=== PATIENT | female | born 1955 | race Caucasian/White ===

== ENCOUNTER 2024-05-10 06:01 | Emergency (ER) | payer MEDICARE ==
[~2024-05-10] VITALS: Ht 167.6 cm; Wt 63.0 kg
[2024-05-10] MEDS ORDERED: JANTOVEN1 M2 PO (07:13)
[2024-05-10] MEDS ORDERED: BUSPIRONE HCL10 M6 PO (07:13)
[2024-05-10] MEDS ORDERED: ATORVASTATIN CA20 MG PO (07:13)
[2024-05-10] MEDS ORDERED: LISI20 PO (07:13)
[2024-05-10] MEDS ORDERED: Methocarbamol 500 MG Tab PO ONE (07:55)
[2024-05-10] MEDS ORDERED: Ketorolac Tromethamine 30mg Vial IV ONE (07:55)
[2024-05-10] MEDS ORDERED: Dexamethasone Sod Phos 10 MG/ML 1ML VIAL IV ONE (08:00)
[2024-05-10] MEDS ORDERED: EPIPEN0.3 MG/0.3 IM (08:01)
[2024-05-10 08:48] LABS: International Normalized Ratio 2.3; Prothrombin Time Results 23.1 Sec (9.7-11.5)
== END 2024-05-10 09:57 | disposition home or self-care (01) ==
LOC: ER 06:01
PROVIDERS: Student in an Organized Health Care Education/Training Program
DX: M76.31 Iliotibial band syndrome, right leg (principal); T78.3XXA Angioneurotic edema, initial encounter; R06.2 Wheezing; Z88.2 Allergy status to sulfonamides; Z88.8 Allergy status to other drugs, medicaments and biological substances; Z88.1 Allergy status to other antibiotic agents; Z88.0 Allergy status to penicillin; Z91.041 Radiographic dye allergy status; Z79.899 Other long term (current) drug therapy; Z79.01 Long term (current) use of anticoagulants; I10 Essential (primary) hypertension; E78.5 Hyperlipidemia, unspecified
CPT/HCPCS: 85610; 93971; 96374; 99283-25; A9270; J1100; J1885

== ENCOUNTER 2024-06-20 09:50 | Day surgery (SDC) | payer MEDICARE ==
[~2024-06-20] VITALS: Ht 167.6 cm; Wt 61.2 kg
[2024-06-20] VITALS (18 sets, daily range): BP systolic 109–144; BP diastolic 56–80
[~2024-06-20 09:50] MED LIST: ATORVASTATIN CA20 MG PO; Acetaminophen 500 MG Tab PO SCH; BUSPIRONE HCL10 M6 PO; CeFAZolin Sodium 2,000 MG in NS 100 ML IV SCH; Chlorhexidine Mouth Care 15 ML UDC MT SCH; EPIPEN0.3 MG/0.3 IM; JANTOVEN1 M2 PO; LEFL20 PO; LISI20 PO; Lactated Ringer's 1,000 ML IV SCH; OxyCODONE HCL 10 MG TABCR PO SCH; Ropivacaine 0.5% HCl/Pf 123.125 MG,EPINEPHrine HCL 0.25 MG,Ketorolac Tromethamine 15 MG... INFIL SCH; Tranexamic Acid 1,000 MG in NS 100 ML IV SCH; WARF5 PO
[2024-06-20] MEDS ORDERED: CeFAZolin Sodium 2,000 MG VIAL ONE (10:24)
[2024-06-20] MEDS ORDERED: BUPR150ER PO (10:41)
--- NOTE | 2024-06-20 11:08 | NUR ---
Ambulatory in Day Surgery History, Chart, Medications and Allergies reviewed before start of procedure. Pre-Op teaching done. Pt verbalizes understanding.
[2024-06-20] MEDS ORDERED: OxyCODONE HCL 5 MG TAB PO PRN ×2 (12:40)
[2024-06-20] MEDS ORDERED: Promethazine HCl 25 MG Tab PO PRN (12:40)
[2024-06-20] MEDS ORDERED: Ondansetron HCl 2 MG / ML 2ML Vial IV PRN (12:40)
[2024-06-20] MEDS ORDERED: Bisacodyl 10 MG Supp PR PRN (12:40)
[2024-06-20] MEDS ORDERED: Magnesium Hydroxide Conc 10 ML UDC PO PRN (12:45)
[2024-06-20] MEDS ORDERED: HYDROmorphone HCl/Pf 1MG SYR IV PRN ×2 (12:45→13:25)
[2024-06-20] MEDS ORDERED: Metoclopramide HCl 5MG / ML 2ML Vial IV PRN (12:45)
[2024-06-20] MEDS ORDERED: Lactated Ringer's 1,000 ML IV SCH (12:45)
[2024-06-20] MEDS ORDERED: FLU VACC TS2024-25(6MOS UP)/PF 45 MCG/0.5 ML SYRINGE IM SCH (12:45)
[2024-06-20] MEDS ORDERED: FentaNYL Citrate 50 MCG/ML 2 ML Injection ONE ×2 (12:55→15:31)
[2024-06-20] MEDS ORDERED: propofoL 20 ML IV ONE (12:55)
[2024-06-20] MEDS ORDERED: Rocuronium Bromide 10 MG/ML 5ML Injection IV ONE (12:56)
[2024-06-20] MEDS ORDERED: DiphenhydrAMINE HCL 25 MG Cap PO PRN (13:15)
[2024-06-20] MEDS ORDERED: FentaNYL Citrate 50 MCG/ML 2 ML Injection IV PRN (13:25)
[2024-06-20] MEDS ORDERED: Albuterol 2.5 MG/3 ML VIAL INH PRN (13:25)
[2024-06-20] MEDS ORDERED: Ketorolac Tromethamine 30mg Vial ONE (13:25)
[2024-06-20] MEDS ORDERED: Droperidol 5 mg/2 ml Vial IV PRN (13:25)
[2024-06-20] MEDS ORDERED: Ondansetron HCl 2 MG / ML 2ML Vial ONE (13:25)
[2024-06-20] MEDS ORDERED: Phenylephrine HCl 100 MCG/ML-NS 10MLSYR (1MG/10ML) ONE (13:25)
[2024-06-20] MEDS ORDERED: Dexamethasone Sod Phos 10 MG/ML 1ML VIAL ONE (13:25)
[2024-06-20] MEDS ORDERED: Labetalol HCL 5 MG/ML 4ML Injection (Single Dose) ONE (13:56)
[2024-06-20] MEDS ORDERED: HYDROmorphone HCl/Pf 1MG SYR ONE ×2 (14:38→15:45)
[2024-06-20] MEDS ORDERED: Sugammadex Sodium 200 MG/2ML SDV (100 MG/ML) ONE (14:43)
[2024-06-20] MEDS ORDERED: Acetaminophen 500 MG Tab PO SCH (16:00)
--- NOTE | 2024-06-20 16:50 | NUR ---
PT ARRIVED FROM PACU AT APPROXIMATELY 1625. PT DROWSY BUT WAKES WHEN SPOKEN TO. SHE IS ALERT/ORIENTED. PT REPORTS PAIN IS 4/10 SHE IS ABLE TO REST WITH HER EYES CLOSED. PT SNORES QUIETLY WHEN LEFT ALONE. CONTINUOUS PULSE OX IN PLACE. TWO RN SKIN CHECK COMPLETED WITH CHRISS RN, CIARRA REDNESS PRESENT AREA BLANCHES, PROTECTIVE DRESSING PLACED. R KNEE SHIVAM DRESSING AND FROY WRAP IN PLACE, DRESSING C/D/I.
[2024-06-20] MEDS ORDERED: Ketorolac Tromethamine 15mg Vial IV SCH (18:00)
--- NOTE | 2024-06-20 18:20 | NUR ---
SHIFT SUMMARY PT IS POD#0 FROM R TKA WITH DR. LASSITER. PAIN MANAGED WITH TYLENOL AND TORADOL. PT HAS BEEN DROWSY SINCE COMING ARRIVAL TO THE ROOM BUT IS NOW AWAKE AND TOLERATING PO. PT ORIENTED TO CALL LIGHT. FAMILY AT THE BEDSIDE.
[2024-06-20] MEDS ORDERED: Docusate Sodium 100 MG Cap PO SCH (21:00)
[2024-06-20] MEDS ORDERED: CeFAZolin Sodium 2,000 MG in NS 100 ML IV SCH (21:00)
[2024-06-21 05:21] LABS: BASOPHILS ABSOLUTE AUTO 0.01 K/mm3 (0.00-0.23); BASOPHILS PERCENT AUTO 0 % (0-2); EOSINOPHILS PERCENT AUTO 0 % (0-6); Hematocrit 29.5 % (33.0-51.0); Hemoglobin 9.6 g/dL (11.5-16.0); IMMATURE GRAN ABSOLUTE AUTO 0.01 K/mm3 (0.00-0.10); IMMATURE GRAN PERCENT AUTO 0 % (0-1); LYMPHOCYTES ABSOLUTE AUTO 0.73 K/mm3 (0.84-5.20); LYMPHOCYTES PERCENT AUTO 21 % (21-46); MONOCYTES ABSOLUTE AUTO 0.22 K/mm3 (0.16-1.47); MONOCYTES PERCENT AUTO 6 % (4-13); Mean Corpuscular HGB 31.5 pg (26.0-34.0); Mean Corpuscular HGB Conc 32.5 g/dL (31.5-36.5); Mean Corpuscular Volume 97 fL (80-100); Mean Platelet Volume 10.4 fL (9.1-12.4); NEUTROPHILS ABSOLUTE AUTO 2.49 K/mm3 (1.96-9.15); NEUTROPHILS PERCENT AUTO 72 % (41-73); Platelet Count 187 K/mm3 (150-400); RDW Coefficient Variation 13.2 % (11.7-14.2); RDW Standard Deviation 47.2 fL (35.1-46.3); Red Blood Cell Count 3.05 M/mm3 (3.80-5.20); White Blood Cell Count 3.46 K/mm3 (4.00-11.30)
[2024-06-21 05:42] LABS: Bun/Creatinine Ratio 32.7 (12.0-20.0); Calcium, Blood 8.8 mg/dL (8.5-10.1); Creatinine, Blood 1.01 mg/dL (0.40-1.00); Potassium, Blood 4.9 mmol/L (3.5-5.5)
[2024-06-21 05:57] VITALS: BP 120/76
--- NOTE | 2024-06-21 06:06 | NUR ---
SHIFT SUMMARY POD 1 R TKA. NO ACUTE CHANGES OVERNIGHT. VSS. TOLERATING ORALS. AMBULATES USING FWW c GB & SBA. VOIDING. PT REPORTS PAIN TOLERABLE, POLAR PACK IN USE, MEDICATED PER EMAR. SHIVAM DRESSING & FROY WRAP C/D/I. ANTICIPATED TO WORK c PHYSCIAL THERAPY THEN DISCHARGE HOME LATER TODAY. PT DRESSED & RESTING IN CHAIR. CALL LIGHT IN REACH, WILL REPORT TO DAY RN.
[2024-06-21 07:18] VITALS: BP 115/63
[2024-06-21] MEDS ORDERED: Leflunomide 10 MG TABLET PO SCH (09:00)
[2024-06-21] MEDS ORDERED: Atorvastatin 10 MG Tab PO SCH (09:00)
[2024-06-21] MEDS ORDERED: buPROPion HCL 150 MG TAB.SR.12H PO SCH (09:00)
[2024-06-21] MEDS ORDERED: BusPIRone HCl 10 MG Tab PO SCH (09:00)
[2024-06-21] MEDS ORDERED: Enoxaparin 40 MG/0.4 ML SYR SC SCH (09:00)
[2024-06-21] MEDS ORDERED: Lisinopril 20 MG Tab PO SCH (09:00)
[2024-06-21 10:11] VITALS: BP 113/54
--- NOTE | 2024-06-21 10:25 | NUR ---
DISCHARGE NOTE POD1 R TKA, PT AMBULATING SBA W// FWW AND GB. PAIN CONTROLLED W/ PAIN MEDS PER EMAR. SALINE LOCKED, PT TOLERATING PO REG DIET. ANGELITO HOSE ON, DRESSING C/D/I, SHIVAM DRAIN IN PLACE. PT SENT HOME W/ AQUACEL TO CHANGE DRESSING IN ONE WEEK. DISCHARGE INSTRUCTIONS REVIEWED W/ PT, COPY GIVEN. PT SENT HOME VIA W/C TO [facility]IVATE [facility] IN STABLE CONDITION W/ ALL BELONGINGS INCLUDING PERSONAL WALKER.
== END 2024-06-21 10:26 | disposition home or self-care (01) ==
LOC: ORSCMMR 09:50 → ORD 11:00 → SURS 15:54 → ORSCMMR 06-21 10:26
PROVIDERS: Orthopaedic Surgery
PROC: 0SRC0JA Replacement of Right Knee Joint with Synthetic Substitute, Uncemented, Open Approach (ICD-10-PCS; principal; 2024-06-20 11:00)
PROC: 8E0Y0CZ Robotic Assisted Procedure of Lower Extremity, Open Approach (ICD-10-PCS; principal; 2024-06-20 11:00)
DX: M17.11 Unilateral primary osteoarthritis, right knee (principal); I10 Essential (primary) hypertension; E78.00 Pure hypercholesterolemia, unspecified; F32.A Depression, unspecified; F41.9 Anxiety disorder, unspecified; Z86.711 Personal history of pulmonary embolism; Z86.718 Personal history of other venous thrombosis and embolism; Z79.01 Long term (current) use of anticoagulants; Z79.899 Other long term (current) drug therapy; Z87.891 Personal history of nicotine dependence
CPT/HCPCS: 36415; 73560-RT; 80048; 85025; 97110; 97116; 97162; A9270; C1713; C1776; J0171; J0690; J0735; J1100; J1171; J1650; J1885; J2371; J2405; J2704; J2795; J3010; J7120

== ENCOUNTER → 2024-07-17 | Outpatient (CLI) | payer MEDICARE ==
[~2024-07-17] MED LIST changes: -Acetaminophen 500 MG Tab PO SCH; +BUPR150ER PO; -CeFAZolin Sodium 2,000 MG in NS 100 ML IV SCH; -Chlorhexidine Mouth Care 15 ML UDC MT SCH; -Lactated Ringer's 1,000 ML IV SCH; -OxyCODONE HCL 10 MG TABCR PO SCH; -Ropivacaine 0.5% HCl/Pf 123.125 MG,EPINEPHrine HCL 0.25 MG,Ketorolac Tromethamine 15 MG... INFIL SCH; -Tranexamic Acid 1,000 MG in NS 100 ML IV SCH
[2024-07-17 16:56] LABS: BODY FLUID RBC 0.596 M/mm3 (0-0)
[2024-07-17 17:00] LABS: Appearance, Synovial Fluid Bloody (Clear); Color, Synovial Fluid Red (None-P Yel); RBC Count, Synovial Fluid 596000 /mm3 (0-0); WBC Count, Synovial Fluid 577 /mm3 (0-180)
[2024-07-17 17:45] LABS: Eos, Synovial Fluid 1 % (0-2); Lymphs, Synovial Fluid 55 % (0-15); Monocytes/Macrophages, Synovia 3 % (0-65); Neutrophils, Synovial Fluid 41 % (0-24)
== END | disposition home or self-care (01) ==
LOC: LAB 16:30 → LAB SHORT 16:30
PROVIDERS: Physician Assistant Surgical
DX: M25.561 Pain in right knee (principal)
CPT/HCPCS: 87070; 87075; 87205; 89051

== ENCOUNTER 2024-08-03 12:11 | Inpatient (IN) | payer MEDICARE ==
[~2024-08-03] VITALS: Ht 167.6 cm; Wt 59.6 kg
[~2024-08-03 12:11] MED LIST changes: -ASCO500 PO; -Acetaminophen650 M1 PO; -BUPROPION XL150 M1 PO; -FERSU300 PO; -LEFLUNOMIDE10 M2 PO; -VISBIOME 112.51 EACH PO
[2024-08-03] MEDS ORDERED: Piperacillin/Tazobactam Sod 3.375 GM in NS 100 ML IV ONE (14:40)
[2024-08-03 14:41] LABS: BASOPHILS ABSOLUTE AUTO 0.03 K/mm3 (0.00-0.23); BASOPHILS PERCENT AUTO 1 % (0-2); EOSINOPHILS PERCENT AUTO 0 % (0-6); Hematocrit 35.1 % (33.0-51.0); Hemoglobin 11.4 g/dL (11.5-16.0); IMMATURE GRAN ABSOLUTE AUTO 0.03 K/mm3 (0.00-0.10); IMMATURE GRAN PERCENT AUTO 1 % (0-1); LYMPHOCYTES ABSOLUTE AUTO 0.95 K/mm3 (0.84-5.20); LYMPHOCYTES PERCENT AUTO 16 % (21-46); MONOCYTES ABSOLUTE AUTO 0.37 K/mm3 (0.16-1.47); MONOCYTES PERCENT AUTO 6 % (4-13); Mean Corpuscular HGB 31.9 pg (26.0-34.0); Mean Corpuscular HGB Conc 32.5 g/dL (31.5-36.5); Mean Corpuscular Volume 98 fL (80-100); Mean Platelet Volume 10.5 fL (9.1-12.4); NEUTROPHILS PERCENT AUTO 77 % (41-73); Platelet Count 206 K/mm3 (150-400); RDW Coefficient Variation 13.8 % (11.7-14.2); RDW Standard Deviation 50.3 fL (35.1-46.3); Red Blood Cell Count 3.57 M/mm3 (3.80-5.20); White Blood Cell Count 6.08 K/mm3 (4.00-11.30)
[2024-08-03] MEDS ORDERED: Vancomycin HCL 1,250 MG in NS 250 ML IV ONE (15:10)
[2024-08-03 15:19] LABS: Albumin, Blood 3.4 g/dL (3.4-5.0); Albumin/Globulin Ratio 0.8 (0.8-1.8); Bilirubin, Total 1.4 mg/dL (0.1-1.0); Bun/Creatinine Ratio 25.2 (12.0-20.0); Calcium, Blood 9.5 mg/dL (8.5-10.1); Creatinine, Blood 1.07 mg/dL (0.40-1.00); Globulin, Blood 4.1 g/dL (2.2-4.0); Potassium, Blood 3.9 mmol/L (3.5-5.5); Total Protein, Blood 7.5 g/dL (6.4-8.2)
[2024-08-03] MEDS ORDERED: Ondansetron HCl 2 MG / ML 2ML Vial IV PRN (16:45)
[2024-08-03] MEDS ORDERED: NS 1,000 ML IV SCH (16:45)
[2024-08-03] MEDS ORDERED: FLU VACC TS2024-25(6MOS UP)/PF 45 MCG/0.5 ML SYRINGE IM SCH (16:50)
[2024-08-03 18:51] VITALS: BP 142/73
--- NOTE | 2024-08-03 18:57 | NUR ---
ADMIT NEW ER ADMIT WITH RIGHT KNEE SEPTIC ARTHRITIS. DR. GOMEZ CONSULTED FOR ORTHO. PT AMBULATORY WITH FWW. R KNEE IS SWOLLEN, INCISION IS SLIGHTLY RED, AND IS WRAPPED IN FROY WRAP. PT REPORTS R KNEE IS TENDER BUT TOLERABLE. VSS. ORIENTED TO ROOM AND CALL LIGHT. GIVEN WATER AND JELLO. PLAN TO REPORT TO ONCOMING NOC KATHRYN.
[2024-08-03 19:32] LABS: International Normalized Ratio 2.02; Prothrombin Time Results 20.5 Sec (9.7-11.5)
[2024-08-03] MEDS ORDERED: Piperacillin/Tazobactam Sod 3.375 GM in NS 100 ML IV SCH (20:08)
[2024-08-03] MEDS ORDERED: OxyCODONE 5 mg/Acetamin 325 mg TABLET PO PRN (22:40)
[2024-08-04] VITALS (16 sets, daily range): BP systolic 95–135; BP diastolic 54–67
--- NOTE | 2024-08-04 04:21 | NUR ---
SHIFT SUMMARY YANNA WAS ALERT AND FULLY ORIENTED ON ASSESMENT. PT HAD JUST ARRIVED TO UNIT AT START OF SHIFT. ADMIT COMPLETE. PT HERE FOR INFECTION TO RECENT R TKR. PT ABLE TO AMBULATE PAINFULLY WITH 1P ASSIST. PT KEPT NPO FROM MIDNIGHT FOR POSSIBLE SURGERY ON DAY SHIFT. PT OTHERWISE WELL SEEMING. PAIN WELL CONTROLLED AT THIS TIME. NO ACUTE EVENTS NO NOTED CHANGES TO PT CONDITION.
[2024-08-04 05:00] LABS: BASOPHILS ABSOLUTE AUTO 0.02 K/mm3 (0.00-0.23); BASOPHILS PERCENT AUTO 0 % (0-2); EOSINOPHILS ABSOLUTE AUTO 0.03 K/mm3 (0.00-0.68); EOSINOPHILS PERCENT AUTO 1 % (0-6); Hematocrit 30.9 % (33.0-51.0); Hemoglobin 9.9 g/dL (11.5-16.0); IMMATURE GRAN ABSOLUTE AUTO 0.03 K/mm3 (0.00-0.10); IMMATURE GRAN PERCENT AUTO 1 % (0-1); LYMPHOCYTES ABSOLUTE AUTO 0.84 K/mm3 (0.84-5.20); LYMPHOCYTES PERCENT AUTO 15 % (21-46); MONOCYTES ABSOLUTE AUTO 0.32 K/mm3 (0.16-1.47); MONOCYTES PERCENT AUTO 6 % (4-13); Mean Corpuscular HGB 31.5 pg (26.0-34.0); Mean Corpuscular Volume 98 fL (80-100); Mean Platelet Volume 10.1 fL (9.1-12.4); NEUTROPHILS ABSOLUTE AUTO 4.32 K/mm3 (1.96-9.15); NEUTROPHILS PERCENT AUTO 78 % (41-73); Platelet Count 167 K/mm3 (150-400); RDW Standard Deviation 50.5 fL (35.1-46.3); Red Blood Cell Count 3.14 M/mm3 (3.80-5.20); White Blood Cell Count 5.56 K/mm3 (4.00-11.30)
[2024-08-04 05:19] LABS: International Normalized Ratio 1.71; Prothrombin Time Results 17.6 Sec (9.7-11.5)
[2024-08-04 05:25] LABS: Bun/Creatinine Ratio 24.5 (12.0-20.0); Creatinine, Blood 1.06 mg/dL (0.40-1.00); Potassium, Blood 3.9 mmol/L (3.5-5.5)
[2024-08-04] MEDS ORDERED: Atorvastatin 10 MG Tab PO SCH (09:00)
[2024-08-04] MEDS ORDERED: Lisinopril 20 MG Tab PO SCH (09:00)
[2024-08-04] MEDS ORDERED: Enoxaparin 40 MG/0.4 ML SYR SC SCH (09:00)
[2024-08-04] MEDS ORDERED: Vancomycin HCL 1,000 MG in NS 250 ML IV SCH (09:00)
[2024-08-04] MEDS ORDERED: BusPIRone HCl 10 MG Tab PO SCH (09:00)
[2024-08-04] MEDS ORDERED: buPROPion HCL 150 MG TAB.SR.12H PO SCH (09:00)
[2024-08-04] MEDS ORDERED: Lactated Ringer's 1,000 ML IV SCH (09:05)
--- NOTE | 2024-08-04 09:10 | NUR ---
PT TO PREOP FROM ROOM 209 VIA WC
[2024-08-04] MEDS ORDERED: Sugammadex Sodium 200 MG/2ML SDV (100 MG/ML) ONE (09:16)
[2024-08-04] MEDS ORDERED: Ketorolac Tromethamine 30mg Vial ONE (09:16)
[2024-08-04] MEDS ORDERED: FentaNYL Citrate 50 MCG/ML 2 ML Injection ONE ×4 (09:16→13:16)
[2024-08-04] MEDS ORDERED: propofoL 20 ML IV ONE (09:16)
[2024-08-04] MEDS ORDERED: Ondansetron HCl 2 MG / ML 2ML Vial ONE (09:17)
[2024-08-04] MEDS ORDERED: Dexamethasone Sod Phos 10 MG/ML 1ML VIAL ONE (09:17)
[2024-08-04] MEDS ORDERED: Lidocaine HCl 2% 20 ML MDV ONE (09:17)
--- NOTE | 2024-08-04 09:45 | NUR ---
History, Chart, Medications and Allergies reviewed before start of procedure. Lungs clear T/O to Auscultation. Patient confirms NPO status and agrees with scheduled surgery. Pre-Op teaching done. Pt verbalizes understanding.
[2024-08-04] MEDS ORDERED: Bupivacaine 0.5% HCl 5 MG/ML 30MLVIAL ONE ×2 (09:50→12:52)
[2024-08-04] MEDS ORDERED: Vancomycin HCl 1000 MG ADDvantage ONE (09:50)
--- NOTE | 2024-08-04 10:58 | NUR ---
08/04/24 1057 Lashawn Lyons PT ON SCHEDULED ANTIBIOTICS.
[2024-08-04] MEDS ORDERED: Tranexamic Acid 1,000 MG in NS 100 ML IV SCH (11:05)
[2024-08-04] MEDS ORDERED: Lactated Ringer's 1,000 ML IV ONE (13:05)
--- NOTE | 2024-08-04 14:53 | NUR ---
POST OP NOTE/SHIFT SUMMARY PT BACK TO ROOM 209 FROM PACU. PT IS ALERT AND RESPONSIVE, MEDICATED FOR PAIN UPON ARRIVAL. 1LNC IN PLACE W/ O2 SATS >92%. DENIES NAUSEA. CAP REFILL 2 SECS IN R TOES, PT REPORTS SENSATION TO RLE AND IS ABLE TO WIGGLE TOES. FROY WRAP AND SHIVAM DRESSING C/D/I TO R KNEE. VSS. PT HAS NOT BEEN OOB SINCE SURGERY. WILL REPORT TO ONCOMING RN.
[2024-08-05 00:20] VITALS: BP 90/52
[2024-08-05 03:40] VITALS: BP 105/64
--- NOTE | 2024-08-05 04:30 | NUR ---
SHIFT SUMMARY POD1 R KNEE I&D. SHIVAM AND FROY WRAP IN PLACE. SCANT RED CLIFF SS, MARTINE. TEDS AND SCDS, ON. DENIES NEED FOR PAIN MEDICATION, TRANSFERS TO BATHROOM 1 ASSIST, FWW.IV ABX INFUSED. TOLERATING PO INTAKE. REPORTS PASSING FLATUS. VSS, CALL LIGHT IN REACH.
[2024-08-05 05:08] LABS: Hematocrit 24.1 % (33.0-51.0); Hemoglobin 7.7 g/dL (11.5-16.0); Mean Corpuscular HGB 32.1 pg (26.0-34.0); Mean Corpuscular Volume 100 fL (80-100); Mean Platelet Volume 10.5 fL (9.1-12.4); Platelet Count 141 K/mm3 (150-400); RDW Coefficient Variation 13.6 % (11.7-14.2); RDW Standard Deviation 50.7 fL (35.1-46.3); White Blood Cell Count 5.14 K/mm3 (4.00-11.30)
[2024-08-05 05:27] LABS: Anti-Xa UFH, PHA Monitoring <0.10 IU/mL; International Normalized Ratio 1.33; Prothrombin Time Results 13.9 Sec (9.7-11.5)
[2024-08-05 05:49] LABS: BAND PERCENT MAN 1 % (0-8); BASOPHILS PERCENT MAN 0 % (0-2); EOSINOPHILS PERCENT MAN 0 % (0-6); LYMPHOCYTES PERCENT MAN 6 % (21-46); MONOCYTES ABSOLUTE MAN 0.05 K/mm3 (0.16-1.47); MONOCYTES PERCENT MAN 1 % (4-13); NEUTROPHILS ABSOLUTE MAN 4.78 K/mm3 (1.96-9.15); SEG NEUTROPHILS PERCENT MAN 92 % (41-73); TOTAL CELLS COUNTED 100
[2024-08-05 05:50] LABS: Albumin, Blood 2.1 g/dL (3.4-5.0); Albumin/Globulin Ratio 0.6 (0.8-1.8); Bilirubin, Total 0.6 mg/dL (0.1-1.0); Bun/Creatinine Ratio 27.3 (12.0-20.0); Calcium, Blood 8.8 mg/dL (8.5-10.1); Creatinine, Blood 1.21 mg/dL (0.40-1.00); Globulin, Blood 3.3 g/dL (2.2-4.0)
[2024-08-05 05:54] LABS: Total Protein, Blood 5.4 g/dL (6.4-8.2)
[2024-08-05 07:24] VITALS: BP 95/54
[2024-08-05] MEDS ORDERED: Warfarin Sodium 5 MG Tab PO ONE (07:30)
[2024-08-05] MEDS ORDERED: Dose Adjust by Pharmacy XX STA ×2 (11:53→18:22)
[2024-08-05] MEDS ORDERED: Warfarin Sodium 2.5 MG Tab PO SCH (12:00)
[2024-08-05] MEDS ORDERED: Heparin Sodium,Porcine/0.5 NS 500 ML IV SCH (12:00)
[2024-08-05 13:52] VITALS: BP 114/71
[2024-08-05] MEDS ORDERED: CeFAZolin Sodium 1,000 MG in NS 50 ML IV SCH (14:00)
--- NOTE | 2024-08-05 19:13 | NUR ---
SHIFT SUMMARY POD1 R KNEE I&D, A/OX4, VSS, TOLERATING PO, PAIN WELL MANAGED, PLAN TO HAVE PICC LINE PLACED TOMORROW, PENDING PLAN FOR DC ABX PER CARE COORDINATION. NO ACUTE EVENTS THIS SHIFT, CALL LIGHT IN REACH.
[2024-08-05 19:15] VITALS: BP 107/56
[2024-08-05 20:52] LABS: Vancomycin, Trough 21.2 ug/mL (5.0-10.0)
[2024-08-06 00:45] LABS: BASOPHILS ABSOLUTE AUTO 0.03 K/mm3 (0.00-0.23); BASOPHILS PERCENT AUTO 1 % (0-2); EOSINOPHILS ABSOLUTE AUTO 0.15 K/mm3 (0.00-0.68); EOSINOPHILS PERCENT AUTO 3 % (0-6); Hematocrit 24.4 % (33.0-51.0); Hemoglobin 7.9 g/dL (11.5-16.0); IMMATURE GRAN ABSOLUTE AUTO 0.01 K/mm3 (0.00-0.10); IMMATURE GRAN PERCENT AUTO 0 % (0-1); LYMPHOCYTES ABSOLUTE AUTO 0.86 K/mm3 (0.84-5.20); LYMPHOCYTES PERCENT AUTO 17 % (21-46); MONOCYTES ABSOLUTE AUTO 0.35 K/mm3 (0.16-1.47); MONOCYTES PERCENT AUTO 7 % (4-13); Mean Corpuscular HGB 31.7 pg (26.0-34.0); Mean Corpuscular HGB Conc 32.4 g/dL (31.5-36.5); Mean Corpuscular Volume 98 fL (80-100); Mean Platelet Volume 10.7 fL (9.1-12.4); NEUTROPHILS ABSOLUTE AUTO 3.79 K/mm3 (1.96-9.15); NEUTROPHILS PERCENT AUTO 73 % (41-73); Platelet Count 174 K/mm3 (150-400); RDW Coefficient Variation 13.6 % (11.7-14.2); RDW Standard Deviation 48.8 fL (35.1-46.3); Red Blood Cell Count 2.49 M/mm3 (3.80-5.20); White Blood Cell Count 5.19 K/mm3 (4.00-11.30)
[2024-08-06 01:01] LABS: International Normalized Ratio 1.74; Prothrombin Time Results 17.9 Sec (9.7-11.5)
[2024-08-06 01:04] LABS: Albumin, Blood 2.3 g/dL (3.4-5.0); Albumin/Globulin Ratio 0.7 (0.8-1.8); Bilirubin, Total 0.3 mg/dL (0.1-1.0); Bun/Creatinine Ratio 31.9 (12.0-20.0); Creatinine, Blood 1.13 mg/dL (0.40-1.00); Globulin, Blood 3.5 g/dL (2.2-4.0); Potassium, Blood 3.8 mmol/L (3.5-5.5); Total Protein, Blood 5.8 g/dL (6.4-8.2)
[2024-08-06] MEDS ORDERED: Dose Adjust by Pharmacy XX STA ×4 (01:07→21:47)
[2024-08-06 04:57] VITALS: BP 126/96
[2024-08-06 07:15] VITALS: BP 126/68
[2024-08-06] MEDS ORDERED: Acetaminophen 325 MG TABLET PO PRN (15:35)
[2024-08-06 15:49] VITALS: BP 125/72
--- NOTE | 2024-08-06 17:12 | NUR ---
SHIFT SUMMARY POD 2 I&D R KNEE PAINFUL UPON WAKING UP KNEE WAS STIFF, SIGNIFICANTLY IMPROVED DURING SHIFT. ABLE TO AMBULATE WELL WITHIN ROOM, UP IN CHAIR DURING SHIFT. DRESSING REMAINS CDI, PICCO INTACT GREEN LIGHT FLASHING. HEPARIN DRIP INFUSING PER EMAR. PICC LINE BEING PLACED AT THIS TIME.
[2024-08-06] MEDS ORDERED: Warfarin Sodium 5 MG Tab PO ONE (18:00)
[2024-08-06 19:24] VITALS: BP 139/71
[2024-08-07 04:54] VITALS: BP 137/87
--- NOTE | 2024-08-07 04:54 | NUR ---
SHIFT SUMMARY POD3 I&D OF R KNEE. DRESSING REMAINS C/D/I, SHIVAM REMAINS COMPRESSED, LIGHT SHADOWING NOTED. SENSATION AND CIRCULATION REMAINS C/D/I. VSS. PT SLEPT WELL T/O THE NIGHT. MEDICATED FOR PAIN W/ PERCOCET W/ GOOD RESULTS. CHLORAHEXADINE WIPE DOWN COMPLETE. PT TOLLERATING PO INTAKE W/O N/V. AMBUALTING TO THE BATHROOM TO VOID W/SBA. OVERALL, NO ACUTE EVENTS NOTED. PLAN FOR CARE MANAGEMENT TO ASSIST W/ D/C PLANNING.
[2024-08-07 05:47] LABS: BASOPHILS ABSOLUTE AUTO 0.02 K/mm3 (0.00-0.23); BASOPHILS PERCENT AUTO 1 % (0-2); EOSINOPHILS ABSOLUTE AUTO 0.16 K/mm3 (0.00-0.68); EOSINOPHILS PERCENT AUTO 4 % (0-6); Hematocrit 24.4 % (33.0-51.0); Hemoglobin 8.1 g/dL (11.5-16.0); IMMATURE GRAN ABSOLUTE AUTO 0.02 K/mm3 (0.00-0.10); IMMATURE GRAN PERCENT AUTO 1 % (0-1); LYMPHOCYTES ABSOLUTE AUTO 0.93 K/mm3 (0.84-5.20); LYMPHOCYTES PERCENT AUTO 25 % (21-46); MONOCYTES ABSOLUTE AUTO 0.34 K/mm3 (0.16-1.47); MONOCYTES PERCENT AUTO 9 % (4-13); Mean Corpuscular HGB 32.1 pg (26.0-34.0); Mean Corpuscular HGB Conc 33.2 g/dL (31.5-36.5); Mean Corpuscular Volume 97 fL (80-100); NEUTROPHILS ABSOLUTE AUTO 2.33 K/mm3 (1.96-9.15); NEUTROPHILS PERCENT AUTO 61 % (41-73); Platelet Count 200 K/mm3 (150-400); RDW Coefficient Variation 13.4 % (11.7-14.2); RDW Standard Deviation 48.1 fL (35.1-46.3); RETICULOCYTE ABSOLUTE 0.0325 M/mm3 (0.0200-0.1100); RETICULOCYTE COUNT PERCENT 1.29 % (0.50-2.50); Red Blood Cell Count 2.52 M/mm3 (3.80-5.20)
[2024-08-07 06:23] LABS: Anti-Xa UFH, PHA Monitoring 0.28 IU/mL; International Normalized Ratio 2.54; Prothrombin Time Results 25.4 Sec (9.7-11.5)
[2024-08-07 06:31] LABS: Albumin, Blood 2.3 g/dL (3.4-5.0); Albumin/Globulin Ratio 0.7 (0.8-1.8); Bilirubin, Total 0.4 mg/dL (0.1-1.0); Bun/Creatinine Ratio 22.4 (12.0-20.0); Calcium, Blood 10.9 mg/dL (8.5-10.1); Creatinine, Blood 1.16 mg/dL (0.40-1.00); Globulin, Blood 3.5 g/dL (2.2-4.0); Percent Saturation 11.2 % (15.0-50.0); Potassium, Blood 3.6 mmol/L (3.5-5.5); Total Protein, Blood 5.8 g/dL (6.4-8.2)
[2024-08-07] MEDS ORDERED: Dose Adjust by Pharmacy XX STA (06:34)
[2024-08-07 07:13] VITALS: BP 127/90
--- NOTE | 2024-08-07 09:06 | NUR ---
HEPARIN DC'D PER ORDERS
[2024-08-07] MEDS ORDERED: LEFLUNOMIDE10 M2 PO (10:45)
[2024-08-07] MEDS ORDERED: BUPROPION XL150 M1 PO (10:45)
[2024-08-07] MEDS ORDERED: ASCO500 PO (10:47)
[2024-08-07] MEDS ORDERED: FERSU300 PO (10:47)
[2024-08-07 15:44] VITALS: BP 135/81
[2024-08-07] MEDS ORDERED: Ferrous Sulfate 325 MG Tab PO SCH (16:35)
[2024-08-07] MEDS ORDERED: Ascorbic Acid 500 MG Tab PO SCH (16:35)
--- NOTE | 2024-08-07 17:28 | NUR ---
SHIFT SUMMARY PT IS POD3 FOR I&D OF R KNEE. DRESSING C/D/I, CAP REFILL <3 SECS IN R TOES. PT AMBULATING 1 ASST W/ FWW TO BATHROOM. PT MEDICATED FOR NAUSEA TODAY, PT LACKING APPETITE BUT IS DRINKING FLUIDS. VSS. PT DID NOT REQUIRE PAIN MEDICATION TODAY AND STATES SHE IS COMFORTABLE. PAS ON. WAITING FOR ARRANGEMENT OF OUTPATIENT IV THERAPY BEFORE DC. PT CURRENTLY RESTING IN BED W/ CALL LIGHT IN REACH.
[2024-08-07 19:34] VITALS: BP 119/80
[2024-08-07] MEDS ORDERED: Docusate Sodium 100 MG Cap PO SCH (21:00)
[2024-08-08 04:03] VITALS: BP 129/67
--- NOTE | 2024-08-08 04:57 | NUR ---
SHIFT SUMMARY POD4 I&D OF R KNEE. PICCO REMAINS C/D/I AND COMPRESSED. FROY WRAP IS C/D/I. SENSATION AND CIRCULATION REMAINS INTACT. VSS. PT SLEPT WELL T/O THE NIGHT. PT DID NOT REQUIRE PAIN MEDICATION T/O THE NIGHT. PT WAS ABLE TO AMBULATIE TO THE BATHROOM INDEP. SHE IS REPORTING URINARY URGENCY AND IS EXPERIENCING MILD INCONTINENCE WHILE SHE IS WALKING TO THE BATHROOM. IV ABX INFUSING PER EMAR. OVERALL. NO ACUTE EVENTS NOTED.
[2024-08-08 05:45] LABS: BASOPHILS ABSOLUTE AUTO 0.02 K/mm3 (0.00-0.23); BASOPHILS PERCENT AUTO 1 % (0-2); EOSINOPHILS ABSOLUTE AUTO 0.15 K/mm3 (0.00-0.68); EOSINOPHILS PERCENT AUTO 4 % (0-6); Hemoglobin 7.3 g/dL (11.5-16.0); IMMATURE GRAN ABSOLUTE AUTO 0.01 K/mm3 (0.00-0.10); IMMATURE GRAN PERCENT AUTO 0 % (0-1); LYMPHOCYTES ABSOLUTE AUTO 1.18 K/mm3 (0.84-5.20); LYMPHOCYTES PERCENT AUTO 32 % (21-46); MONOCYTES ABSOLUTE AUTO 0.39 K/mm3 (0.16-1.47); MONOCYTES PERCENT AUTO 11 % (4-13); Mean Corpuscular HGB 32.2 pg (26.0-34.0); Mean Corpuscular HGB Conc 33.2 g/dL (31.5-36.5); Mean Corpuscular Volume 97 fL (80-100); Mean Platelet Volume 9.9 fL (9.1-12.4); NEUTROPHILS ABSOLUTE AUTO 1.93 K/mm3 (1.96-9.15); NEUTROPHILS PERCENT AUTO 52 % (41-73); Platelet Count 182 K/mm3 (150-400); RDW Coefficient Variation 13.3 % (11.7-14.2); RDW Standard Deviation 47.5 fL (35.1-46.3); Red Blood Cell Count 2.27 M/mm3 (3.80-5.20); White Blood Cell Count 3.68 K/mm3 (4.00-11.30)
[2024-08-08 05:59] LABS: International Normalized Ratio 3.52; Prothrombin Time Results 34.3 Sec (9.7-11.5)
[2024-08-08 06:13] LABS: Albumin, Blood 2.2 g/dL (3.4-5.0); Albumin/Globulin Ratio 0.6 (0.8-1.8); Bilirubin, Total 0.4 mg/dL (0.1-1.0); Bun/Creatinine Ratio 17.1 (12.0-20.0); Calcium, Blood 10.5 mg/dL (8.5-10.1); Creatinine, Blood 1.05 mg/dL (0.40-1.00); Globulin, Blood 3.5 g/dL (2.2-4.0); Potassium, Blood 3.5 mmol/L (3.5-5.5); Total Protein, Blood 5.7 g/dL (6.4-8.2)
[2024-08-08 07:14] VITALS: BP 130/71
[2024-08-08] MEDS ORDERED: Leflunomide 10 MG TABLET PO SCH (09:00)
[2024-08-08 15:55] VITALS: BP 133/77
--- NOTE | 2024-08-08 17:30 | NUR ---
SHIFT SUMMARY/TRANSFER NOTE PT HAS BEEN A/OX4, IND/SBA TO BR, VOIDING, TOLERATING REG DIET. PAIN TOLERABLE W/ PRN PAIN MEDS, PT DENIES NAUSEA. VSS. FROY WRAP AND SHIVAM DRESSING C/D/I, SHIVAM COMPRESSED. CAP REFILL TO R TOES 2 SECS, PT REPORTS FULL SENSATION TO TO RLE. CONSULTED W/ DR. WARREN REGARDING PT'S DROPPING H&H, NO ORDERS RECIEVED, NO INCREASED BLEEDING/REDNESS/DRAINAGE TO RLE. IV ABX GIVEN ORDERED. REPORT TO SERGO JOHNSON RN PT IS TRANSFERRING TO ROOM 344. PT TRANSFERED IN STABLE CONDITION W/ ALL BELONGINGS VIA HOSPITAL BED TO ROOM 344.
[2024-08-08 19:13] VITALS: BP 140/74
[2024-08-08] MEDS ORDERED: NS 250 ML IV PRN (19:15)
[2024-08-08] MEDS ORDERED: Lactobacil 2-S.Thermo-Bifido 1 1 Cap PO SCH (21:00)
[2024-08-09 02:10] VITALS: BP 137/73
--- NOTE | 2024-08-09 02:27 | NUR ---
SUMMARY- NO NEW ISSUES. PT PAIN MANAGED WELL. PT SLEEPING. DRESSING C/D/I AND SHIVAM COMPRESSED. CALL LIGHT IN REACH.
[2024-08-09 06:14] LABS: BASOPHILS ABSOLUTE AUTO 0.01 K/mm3 (0.00-0.23); BASOPHILS PERCENT AUTO 0 % (0-2); EOSINOPHILS ABSOLUTE AUTO 0.13 K/mm3 (0.00-0.68); EOSINOPHILS PERCENT AUTO 3 % (0-6); Hematocrit 24.2 % (33.0-51.0); Hemoglobin 7.9 g/dL (11.5-16.0); IMMATURE GRAN ABSOLUTE AUTO 0.02 K/mm3 (0.00-0.10); IMMATURE GRAN PERCENT AUTO 1 % (0-1); LYMPHOCYTES ABSOLUTE AUTO 1.69 K/mm3 (0.84-5.20); LYMPHOCYTES PERCENT AUTO 40 % (21-46); MONOCYTES ABSOLUTE AUTO 0.41 K/mm3 (0.16-1.47); MONOCYTES PERCENT AUTO 10 % (4-13); Mean Corpuscular HGB 31.5 pg (26.0-34.0); Mean Corpuscular HGB Conc 32.6 g/dL (31.5-36.5); Mean Corpuscular Volume 96 fL (80-100); Mean Platelet Volume 10.1 fL (9.1-12.4); NEUTROPHILS PERCENT AUTO 47 % (41-73); Platelet Count 208 K/mm3 (150-400); RDW Coefficient Variation 13.2 % (11.7-14.2); RDW Standard Deviation 47.4 fL (35.1-46.3); Red Blood Cell Count 2.51 M/mm3 (3.80-5.20); White Blood Cell Count 4.26 K/mm3 (4.00-11.30)
[2024-08-09 06:21] LABS: International Normalized Ratio 2.94
--- NOTE | 2024-08-09 06:29 | NUR ---
SHIFT SUMMARY PT ALERT AND ORIENTED TIMES 4. PT IS POSITIVE FOR MSSA. PT IS INDEPENDENT. AND ABLE TO AMBULATE TO TOILET. NO IV ORDER. ONLY PAIN MEDICATION IS TO BE GIVEN. PT APPEARED TO SLEEP THROUGHOUT THE NIGHT WITHOUT ISSUES BED IN LOW POSITION, CALL LIGHT WITHIN REACH, RAILS TIMES 2.
[2024-08-09 06:41] LABS: Albumin, Blood 2.4 g/dL (3.4-5.0); Albumin/Globulin Ratio 0.6 (0.8-1.8); Bilirubin, Total 0.3 mg/dL (0.1-1.0); Bun/Creatinine Ratio 15.7 (12.0-20.0); Calcium, Blood 10.5 mg/dL (8.5-10.1); Creatinine, Blood 1.02 mg/dL (0.40-1.00); Globulin, Blood 3.8 g/dL (2.2-4.0); Potassium, Blood 3.5 mmol/L (3.5-5.5); Total Protein, Blood 6.2 g/dL (6.4-8.2)
[2024-08-09 07:29] VITALS: BP 128/95
[2024-08-09] MEDS ORDERED: DAPTOmycin 480 MG in NS 50 ML IV SCH (09:00)
--- NOTE | 2024-08-09 15:17 | NUR ---
ASSUMED CARE OF PT, VERY PLEASENT AND COOPERATIVE PT HOPING TO GO HOME THIS AFTERNOON, PT IS AMBULATORY AND IND IN ROOM PICC LINE TO RIGHT UPPER ARM INTACT AND PATENT, NO C/O PAIN NO DISTRESS..
[2024-08-09] MEDS ORDERED: Acetaminophen650 M1 PO (16:59)
[2024-08-09] MEDS ORDERED: VISBIOME 112.51 EACH PO (17:00)
[2024-08-09] MEDS ORDERED: Warfarin Sodium 2.5 MG Tab PO SCH (18:00)
== END 2024-08-09 17:55 | disposition home health service (06) | DRG 486 ==
LOC: ER 12:11 → SURS 12:12 → MEDS 08-04 12:15 → SURS 08-04 12:15 → MEDS 08-08 18:16
PROVIDERS: Family Medicine; Internal Medicine; Orthopaedic Surgery; Physician Assistant; ADMIT Internal Medicine
PROC: 0SPC09Z Removal of Liner from Right Knee Joint, Open Approach (ICD-10-PCS; 2024-08-04)
PROC: 0SUV09Z Supplement Right Knee Joint, Tibial Surface with Liner, Open Approach (ICD-10-PCS; 2024-08-04)
PROC: 0SBC0ZZ Excision of Right Knee Joint, Open Approach (ICD-10-PCS; principal; 2024-08-04 10:00)
DX: T84.53XA Infection and inflammatory reaction due to internal right knee prosthesis, initial encounter (principal); M00.861 Arthritis due to other bacteria, right knee; M96.842 Postprocedural seroma of a musculoskeletal structure following a musculoskeletal system procedure; M71.161 Other infective bursitis, right knee; Y83.8 Other surgical procedures as the cause of abnormal reaction of the patient, or of later complication, without mention of misadventure at the time of the procedure; I10 Essential (primary) hypertension; E78.5 Hyperlipidemia, unspecified; M06.9 Rheumatoid arthritis, unspecified; E61.1 Iron deficiency; K59.00 Constipation, unspecified; Z86.718 Personal history of other venous thrombosis and embolism; Z86.711 Personal history of pulmonary embolism; Z96.651 Presence of right artificial knee joint; Z88.1 Allergy status to other antibiotic agents; Z88.8 Allergy status to other drugs, medicaments and biological substances; Z79.899 Other long term (current) drug therapy
CPT/HCPCS: 36415; 36569; 80048; 80053; 80202; 82550; 82728; 83540; 83550; 83605; 83735; 84100; 85025; 85045; 85520; 85610; 85651; 85730; 86140; 87040; 87070; 87075; 87077; 87147; 87186; 87205; 93971; 96374; 97110; 97116; 97161; 97530; 99284-25; A9270; C1713; C1751; C1776; G0378; J0690; J0878; J1100; J1644; J1885; J2405; J2543; J2704; J3010; J3370; J7030; J7050; J7120

== ENCOUNTER → 2024-08-03 | Outpatient (CLI) | payer MEDICARE ==
[~2024-08-03] MED LIST changes: +ASCO500 PO; +Acetaminophen650 M1 PO; +BUPROPION XL150 M1 PO; +FERSU300 PO; +LEFLUNOMIDE10 M2 PO; +VISBIOME 112.51 EACH PO; +WARF2.5 PO; -WARF5 PO
[2024-08-03 12:08] LABS: BODY FLUID RBC 0.103 M/mm3 (0-0)
[2024-08-03 12:18] LABS: RBC Count, Synovial Fluid 103000 /mm3 (0-0)
[2024-08-03 12:19] LABS: Appearance, Synovial Fluid Hazy (Clear); Color, Synovial Fluid Red (None-P Yel)
[2024-08-03 12:20] LABS: WBC Count, Synovial Fluid 85180 /mm3 (0-180)
[2024-08-03 12:45] LABS: Lymphs, Synovial Fluid 2 % (0-15); Monocytes/Macrophages, Synovia 2 % (0-65); Neutrophils, Synovial Fluid 96 % (0-24)
== END | disposition home or self-care (01) ==
LOC: LAB 10:45 → LAB SHORT 10:45
PROVIDERS: Physician Assistant Surgical
DX: M70.41 Prepatellar bursitis, right knee (principal)
CPT/HCPCS: 87070; 87077; 87147; 87186; 87205; 89051

== ENCOUNTER → 2024-08-14 | Outpatient (CLI) | payer MEDICARE ==
[~2024-08-14] MED LIST changes: +ASCO500 PO; +Acetaminophen650 M1 PO; +BUPROPION XL150 M1 PO; +CLIN150 PO; +FERSU300 PO; -JANTOVEN1 M2 PO; +Jantoven3 MG PO; +LEFLUNOMIDE10 M2 PO; +Percocet 5-3251 EACH PO; +VISBIOME 112.51 EACH PO; -WARF2.5 PO; +WARF5 PO
[2024-08-14 17:08] LABS: BASOPHILS ABSOLUTE AUTO 0.04 K/mm3 (0.00-0.23); BASOPHILS PERCENT AUTO 1 % (0-2); EOSINOPHILS ABSOLUTE AUTO 0.04 K/mm3 (0.00-0.68); EOSINOPHILS PERCENT AUTO 1 % (0-6); Hematocrit 22.3 % (33.0-51.0); Hemoglobin 7.1 g/dL (11.5-16.0); IMMATURE GRAN ABSOLUTE AUTO 0.01 K/mm3 (0.00-0.10); IMMATURE GRAN PERCENT AUTO 0 % (0-1); LYMPHOCYTES PERCENT AUTO 24 % (21-46); MONOCYTES ABSOLUTE AUTO 0.41 K/mm3 (0.16-1.47); MONOCYTES PERCENT AUTO 7 % (4-13); Mean Corpuscular HGB 31.6 pg (26.0-34.0); Mean Corpuscular HGB Conc 31.8 g/dL (31.5-36.5); Mean Corpuscular Volume 99 fL (80-100); NEUTROPHILS ABSOLUTE AUTO 3.72 K/mm3 (1.96-9.15); NEUTROPHILS PERCENT AUTO 67 % (41-73); Platelet Count 254 K/mm3 (150-400); RDW Coefficient Variation 13.7 % (11.7-14.2); RDW Standard Deviation 49.7 fL (35.1-46.3); Red Blood Cell Count 2.25 M/mm3 (3.80-5.20); White Blood Cell Count 5.52 K/mm3 (4.00-11.30)
[2024-08-14 17:23] LABS: Albumin, Blood 2.7 g/dL (3.4-5.0); Albumin/Globulin Ratio 0.7 (0.8-1.8); Bilirubin, Total 0.2 mg/dL (0.1-1.0); Bun/Creatinine Ratio 23.5 (12.0-20.0); Calcium, Blood 8.5 mg/dL (8.5-10.1); Creatinine, Blood 1.15 mg/dL (0.40-1.00); Globulin, Blood 3.9 g/dL (2.2-4.0); Potassium, Blood 3.7 mmol/L (3.5-5.5); Total Protein, Blood 6.6 g/dL (6.4-8.2)
== END | disposition home or self-care (01) ==
LOC: LAB 13:05 → LAB SHORT 13:05
PROVIDERS: Family Medicine
DX: T84.53XA Infection and inflammatory reaction due to internal right knee prosthesis, initial encounter (principal)
CPT/HCPCS: 80053; 82550; 85025

== ENCOUNTER 2024-08-22 09:33 | Day surgery (SDC) | payer MEDICARE ==
[2024-08-22] VITALS (13 sets, daily range): BP systolic 135–149; BP diastolic 73–85
[~2024-08-22] VITALS: Ht 152.4 cm; Wt 61.0 kg
[~2024-08-22 09:33] MED LIST changes: -Jantoven3 MG PO; -WARF5 PO
[2024-08-22] MEDS ORDERED: CeFAZolin Sodium 2,000 MG in NS 100 ML IV SCH (10:30)
[2024-08-22] MEDS ORDERED: Lactated Ringer's 1,000 ML IV SCH (10:30)
[2024-08-22] MEDS ORDERED: Bupivacaine 0.5% HCl 5 MG/ML 30MLVIAL ONE (12:43)
[2024-08-22] MEDS ORDERED: propofoL 20 ML IV ONE (13:08)
[2024-08-22] MEDS ORDERED: Rocuronium Bromide 10 MG/ML 5ML Injection IV ONE (13:08)
[2024-08-22] MEDS ORDERED: Bisacodyl 10 MG Supp PR PRN (13:25)
[2024-08-22] MEDS ORDERED: Magnesium Hydroxide Conc 10 ML UDC PO PRN (13:25)
[2024-08-22] MEDS ORDERED: FLU VACC TS2024-25(6MOS UP)/PF 45 MCG/0.5 ML SYRINGE IM ONE ×2 (13:25→16:10)
[2024-08-22] MEDS ORDERED: Ondansetron HCl 2 MG / ML 2ML Vial ONE (13:28)
[2024-08-22] MEDS ORDERED: Dexamethasone Sod Phos 10 MG/ML 1ML VIAL ONE (13:28)
[2024-08-22] MEDS ORDERED: FentaNYL Citrate 50 MCG/ML 2 ML Injection ONE (13:33)
[2024-08-22] MEDS ORDERED: Phenylephrine HCl 100 MCG/ML-NS 10MLSYR (1MG/10ML) ONE (13:38)
[2024-08-22] MEDS ORDERED: Ondansetron HCl 2 MG / ML 2ML Vial IV PRN (13:45)
[2024-08-22] MEDS ORDERED: Labetalol HCL 5 MG/ML 4ML Injection (Single Dose) IV PRN (13:45)
[2024-08-22] MEDS ORDERED: FentaNYL Citrate 50 MCG/ML 2 ML Injection IV PRN (13:45)
[2024-08-22] MEDS ORDERED: HYDROmorphone HCl/Pf 1MG SYR IV PRN ×2 (13:45)
[2024-08-22] MEDS ORDERED: Sugammadex Sodium 200 MG/2ML SDV (100 MG/ML) ONE (13:48)
[2024-08-22] MEDS ORDERED: OxyCODONE 5 mg/Acetamin 325 mg TABLET PO PRN (15:30)
[2024-08-22] MEDS ORDERED: Ondansetron 4 MG SoluTab SL PRN (15:30)
[2024-08-22] MEDS ORDERED: NS 250 ML IV PRN (15:35)
--- NOTE | 2024-08-22 16:50 | NUR ---
SUMMARY NO ACUTE CHANGES SINCE ARRIVING TO UNIT FROM PACU. MEDICATED PT PER ORDERS FOR PAIN TO R KNEE AND PT REPORTED PAIN IMPROVED TO 3/10. WOUND VAC TO R KNEE CDI AND COMPRESSED. PT HAS BEEN UP TO BSC TO VOID. SBA. CALL LIGHT IN REACH.
[2024-08-22] MEDS ORDERED: buPROPion HCL 150 MG TAB.SR.12H PO SCH (17:00)
[2024-08-22] MEDS ORDERED: DAPTOmycin 500 MG in NS 50 ML IV SCH (18:00)
[2024-08-22] MEDS ORDERED: Docusate Sodium 100 MG Cap PO SCH (21:00)
[2024-08-23 00:19] VITALS: BP 127/79
[2024-08-23 02:37] VITALS: BP 144/86
[2024-08-23 05:34] LABS: BASOPHILS ABSOLUTE AUTO 0.01 K/mm3 (0.00-0.23); BASOPHILS PERCENT AUTO 0 % (0-2); EOSINOPHILS ABSOLUTE AUTO 0.01 K/mm3 (0.00-0.68); EOSINOPHILS PERCENT AUTO 0 % (0-6); Hematocrit 23.6 % (33.0-51.0); Hemoglobin 7.6 g/dL (11.5-16.0); IMMATURE GRAN ABSOLUTE AUTO 0.01 K/mm3 (0.00-0.10); IMMATURE GRAN PERCENT AUTO 0 % (0-1); LYMPHOCYTES ABSOLUTE AUTO 1.01 K/mm3 (0.84-5.20); LYMPHOCYTES PERCENT AUTO 36 % (21-46); MONOCYTES ABSOLUTE AUTO 0.27 K/mm3 (0.16-1.47); MONOCYTES PERCENT AUTO 10 % (4-13); Mean Corpuscular HGB 30.6 pg (26.0-34.0); Mean Corpuscular HGB Conc 32.2 g/dL (31.5-36.5); Mean Corpuscular Volume 95 fL (80-100); Mean Platelet Volume 9.4 fL (9.1-12.4); NEUTROPHILS ABSOLUTE AUTO 1.53 K/mm3 (1.96-9.15); NEUTROPHILS PERCENT AUTO 54 % (41-73); Platelet Count 232 K/mm3 (150-400); RDW Coefficient Variation 14.2 % (11.7-14.2); RDW Standard Deviation 48.6 fL (35.1-46.3); Red Blood Cell Count 2.48 M/mm3 (3.80-5.20); White Blood Cell Count 2.84 K/mm3 (4.00-11.30)
--- NOTE | 2024-08-23 06:00 | NUR ---
SHIFT SUMMARY POD 1 R KNEE I&D c WOUND VAC PLACEMENT. NO ACUTE CHANGES OVERNIGHT. VSS. TOLERATING ORALS. PT REPORTS PAIN TOLERABLE. WOUND VAC C/D/I & COMPRESSED, MIN SANG DRAINAGE IN VAC. PT AMBULATES c FWW & SBA TO BSC. ANTICIPATED DC LATER TODAY. CALL LIGHT IN REACH, BED IN LOWEST POSITION, WILL REPORT TO DAY RN.
[2024-08-23 07:21] VITALS: BP 141/84
[2024-08-23] MEDS ORDERED: Lisinopril 20 MG Tab PO SCH (09:00)
[2024-08-23] MEDS ORDERED: BusPIRone HCl 10 MG Tab PO SCH (09:00)
[2024-08-23] MEDS ORDERED: Atorvastatin 10 MG Tab PO SCH (09:00)
[2024-08-23] MEDS ORDERED: Rivaroxaban 10 MG Tab PO SCH (09:00)
[2024-08-23] MEDS ORDERED: Leflunomide 10 MG TABLET PO SCH (09:00)
--- NOTE | 2024-08-23 12:30 | NUR ---
REPORT RECEIVED FROM KATHRYN GLEASON. ASSUMED PT CARE AT THIS TIME
[2024-08-23 15:18] VITALS: BP 144/87
[2024-08-23] MEDS ORDERED: WARF5 PO (15:23)
[2024-08-23] MEDS ORDERED: Jantoven3 MG PO (15:24)
--- NOTE | 2024-08-23 17:53 | NUR ---
AT ABOUT 1500 WOUND VAC DRESSING REMOVED AND REPLACED PER ORDER. WOUND CLEANED WITH SALINE AND GAUZE. WOUND BED FRIABLE, BEEFY RED WOUND BED. 2 PIECES OF BLACK FOAM USED AND PRESSURE SETTINGS SET TO [address] LASSITER ORDER. WOUND VAC APPLIED WITHOUT COMPLICATION. PATIENT TOLERATED WELL AND DENIED QUESTIONS OR CONCERNS. REVIEWED HOW TO CHARGE WOUND VAC, CHANGE CANISTER AND WHAT TO DO AND WHO TO CALL IF ISSUES OCCUR. REVIEWED SIGNS/SYMPTOMS OF COMPLICATIONS WITH PATIENT AND SHE VERABLIZED UNDERSTANDING. YAHAIRA HOLMAN SAND POLISHER STATED [facility] WILL RECEIVE ORDERS FOR WOUND VAC CHANGES. PATIENT STATED SHE HAS CONTACT INFORMATION FOR [employer] AND WILL MAKE SURE TO CONTACT THEM WELL.
--- NOTE | 2024-08-23 17:53 | NUR ---
DISCHARGE: PACKET PRINTED AND PT EDUCATED. PT GIVEN WOUND VAC FOR HOME AND WOUND VAC SUPPLIES. WOUND VAC CHANGED BY KATHRYN KWOK. PICC LINE TO STAY IN PLACE, PT REPORTS PICC LINE DRESSING LAST CHANGED ON 08/21/24. PT IS AWARE OF HH VISITS AND IV ANTIBIOTIC INFUSIONS ORDERS FOR HOME. PT LEFT UNIT VIA WHEELCHAIR AT ABOUT 1530 WITH DEJUAN COSTELLO AND PT'S FAMILY. HOSPITAL WOUND VAC RETURNED TO [facility]
== END 2024-08-23 16:33 | disposition home or self-care (01) ==
LOC: ORSCMMR 09:33 → ORD 12:30 → SURS 14:55 → ORSCMMR 08-23 16:33
PROVIDERS: Orthopaedic Surgery
PROC: 0JDN0ZZ Extraction of Right Lower Leg Subcutaneous Tissue and Fascia, Open Approach (ICD-10-PCS; principal; 2024-08-22 12:30)
DX: T84.092A Other mechanical complication of internal right knee prosthesis, initial encounter (principal); M96.843 Postprocedural seroma of a musculoskeletal structure following other procedure; Z96.651 Presence of right artificial knee joint; I12.9 Hypertensive chronic kidney disease with stage 1 through stage 4 chronic kidney disease, or unspecified chronic kidney disease; N18.9 Chronic kidney disease, unspecified; Z86.711 Personal history of pulmonary embolism; Z79.01 Long term (current) use of anticoagulants; F41.9 Anxiety disorder, unspecified; F32.A Depression, unspecified; Z79.899 Other long term (current) drug therapy
CPT/HCPCS: 85025; 90656; A9270; J0690; J0878; J1100; J2371; J2405; J2704; J3010; J7050; J7120

== ENCOUNTER → 2024-08-28 | Outpatient (CLI) | payer MEDICARE ==
[~2024-08-28] MED LIST changes: +Jantoven3 MG PO; +WARF5 PO
[2024-08-28 19:51] LABS: BASOPHILS ABSOLUTE AUTO 0.02 K/mm3 (0.00-0.23); BASOPHILS PERCENT AUTO 1 % (0-2); EOSINOPHILS ABSOLUTE AUTO 0.13 K/mm3 (0.00-0.68); EOSINOPHILS PERCENT AUTO 4 % (0-6); Hematocrit 27.2 % (33.0-51.0); Hemoglobin 8.5 g/dL (11.5-16.0); IMMATURE GRAN ABSOLUTE AUTO 0.01 K/mm3 (0.00-0.10); IMMATURE GRAN PERCENT AUTO 0 % (0-1); LYMPHOCYTES ABSOLUTE AUTO 1.25 K/mm3 (0.84-5.20); LYMPHOCYTES PERCENT AUTO 38 % (21-46); MONOCYTES ABSOLUTE AUTO 0.33 K/mm3 (0.16-1.47); MONOCYTES PERCENT AUTO 10 % (4-13); Mean Corpuscular HGB Conc 31.3 g/dL (31.5-36.5); Mean Corpuscular Volume 99 fL (80-100); Mean Platelet Volume 10.5 fL (9.1-12.4); NEUTROPHILS ABSOLUTE AUTO 1.56 K/mm3 (1.96-9.15); NEUTROPHILS PERCENT AUTO 47 % (41-73); Platelet Count 232 K/mm3 (150-400); RDW Coefficient Variation 14.6 % (11.7-14.2); RDW Standard Deviation 52.3 fL (35.1-46.3); Red Blood Cell Count 2.74 M/mm3 (3.80-5.20)
[2024-08-28 20:20] LABS: Albumin/Globulin Ratio 0.8 (0.8-1.8); Bilirubin, Total 0.3 mg/dL (0.1-1.0); Bun/Creatinine Ratio 16.7 (12.0-20.0); Calcium, Blood 9.2 mg/dL (8.5-10.1); Creatinine, Blood 1.38 mg/dL (0.40-1.00); Globulin, Blood 3.8 g/dL (2.2-4.0); Total Protein, Blood 6.8 g/dL (6.4-8.2)
== END | disposition home or self-care (01) ==
LOC: LAB 18:28 → LAB SHORT 18:28
PROVIDERS: Internal Medicine
DX: T84.53XA Infection and inflammatory reaction due to internal right knee prosthesis, initial encounter (principal)
CPT/HCPCS: 80053; 82550; 85025

== ENCOUNTER → 2024-08-30 | Outpatient (CLI) | payer MEDICARE ==
[2024-08-30 14:51] LABS: BASOPHILS ABSOLUTE AUTO 0.02 K/mm3 (0.00-0.23); BASOPHILS PERCENT AUTO 1 % (0-2); EOSINOPHILS PERCENT AUTO 3 % (0-6); Hematocrit 27.6 % (33.0-51.0); Hemoglobin 8.7 g/dL (11.5-16.0); IMMATURE GRAN PERCENT AUTO 0 % (0-1); LYMPHOCYTES ABSOLUTE AUTO 1.58 K/mm3 (0.84-5.20); LYMPHOCYTES PERCENT AUTO 45 % (21-46); MONOCYTES PERCENT AUTO 12 % (4-13); Mean Corpuscular HGB 31.1 pg (26.0-34.0); Mean Corpuscular HGB Conc 31.5 g/dL (31.5-36.5); Mean Corpuscular Volume 99 fL (80-100); Mean Platelet Volume 10.5 fL (9.1-12.4); NEUTROPHILS ABSOLUTE AUTO 1.39 K/mm3 (1.96-9.15); NEUTROPHILS PERCENT AUTO 40 % (41-73); Platelet Count 232 K/mm3 (150-400); RDW Coefficient Variation 14.5 % (11.7-14.2); RDW Standard Deviation 52.2 fL (35.1-46.3); White Blood Cell Count 3.49 K/mm3 (4.00-11.30)
[2024-08-30 14:55] LABS: Albumin, Blood 3.2 g/dL (3.4-5.0); Albumin/Globulin Ratio 0.8 (0.8-1.8); Bilirubin, Total 0.2 mg/dL (0.1-1.0); Bun/Creatinine Ratio 20.9 (12.0-20.0); Calcium, Blood 9.4 mg/dL (8.5-10.1); Creatinine, Blood 1.29 mg/dL (0.40-1.00); Globulin, Blood 3.9 g/dL (2.2-4.0); Total Protein, Blood 7.1 g/dL (6.4-8.2)
== END | disposition home or self-care (01) ==
LOC: LAB SHORT 14:05 → LAB 14:05
PROVIDERS: Orthopaedic Surgery
DX: M71.161 Other infective bursitis, right knee (principal)
CPT/HCPCS: 80053; 82550; 85025; 86140

== ENCOUNTER → 2024-09-04 | Outpatient (CLI) | payer MEDICARE ==
[2024-09-04 19:37] LABS: BASOPHILS ABSOLUTE AUTO 0.03 K/mm3 (0.00-0.23); BASOPHILS PERCENT AUTO 1 % (0-2); EOSINOPHILS ABSOLUTE AUTO 0.06 K/mm3 (0.00-0.68); EOSINOPHILS PERCENT AUTO 2 % (0-6); Hematocrit 28.4 % (33.0-51.0); Hemoglobin 8.9 g/dL (11.5-16.0); IMMATURE GRAN PERCENT AUTO 0 % (0-1); LYMPHOCYTES ABSOLUTE AUTO 1.36 K/mm3 (0.84-5.20); LYMPHOCYTES PERCENT AUTO 45 % (21-46); MONOCYTES ABSOLUTE AUTO 0.28 K/mm3 (0.16-1.47); MONOCYTES PERCENT AUTO 9 % (4-13); Mean Corpuscular HGB 30.8 pg (26.0-34.0); Mean Corpuscular HGB Conc 31.3 g/dL (31.5-36.5); Mean Corpuscular Volume 98 fL (80-100); Mean Platelet Volume 10.8 fL (9.1-12.4); NEUTROPHILS ABSOLUTE AUTO 1.28 K/mm3 (1.96-9.15); NEUTROPHILS PERCENT AUTO 43 % (41-73); Platelet Count 218 K/mm3 (150-400); RDW Coefficient Variation 14.4 % (11.7-14.2); Red Blood Cell Count 2.89 M/mm3 (3.80-5.20); White Blood Cell Count 3.01 K/mm3 (4.00-11.30)
[2024-09-04 21:06] LABS: Alanine Aminotransfer (ALT/SGP 16 U/L (12-78); Albumin, Blood 2.9 g/dL (3.4-5.0); Albumin/Globulin Ratio 0.8 (0.8-1.8); Alk Phos 87 U/L (50-136); Anion Gap 8 mmol/L (3-11); Aspartate Aminotrans (AST/SGOT 14 U/L (12-37); Bilirubin, Total 0.3 mg/dL (0.1-1.0); Blood Urea Nitrogen 23 mg/dL (8-24); Bun/Creatinine Ratio 21.1 (12.0-20.0); C-REACTIVE PROTEIN, EXT RANGE <0.290 mg/dL (0.000-0.300); CO2, Blood 27 mmol/L (21-32); Calcium, Blood 9.1 mg/dL (8.5-10.1); Chloride, Blood 111 mmol/L (98-108); Creatinine, Blood 1.09 mg/dL (0.40-1.00); Globulin, Blood 3.6 g/dL (2.2-4.0); Glomerular Filtration Rate 55 (60-); Glucose, Blood 90 mg/dL (70-99); Potassium, Blood 3.9 mmol/L (3.5-5.5); Sodium, Blood 142 mmol/L (136-145); Total Protein, Blood 6.5 g/dL (6.4-8.2)
== END ==
LOC: LAB 18:52 → LAB SHORT 18:52
DX: T84.53XA Infection and inflammatory reaction due to internal right knee prosthesis, initial encounter (principal); Z79.2 Long term (current) use of antibiotics
CPT/HCPCS: 80053; 82550; 85025; 86140

== ENCOUNTER → 2024-09-11 | Outpatient (CLI) | payer MEDICARE ==
[2024-09-11 16:13] LABS: BASOPHILS ABSOLUTE AUTO 0.03 K/mm3 (0.00-0.23); BASOPHILS PERCENT AUTO 1 % (0-2); EOSINOPHILS ABSOLUTE AUTO 0.08 K/mm3 (0.00-0.68); EOSINOPHILS PERCENT AUTO 3 % (0-6); Hematocrit 28.9 % (33.0-51.0); Hemoglobin 9.2 g/dL (11.5-16.0); IMMATURE GRAN ABSOLUTE AUTO 0.01 K/mm3 (0.00-0.10); IMMATURE GRAN PERCENT AUTO 0 % (0-1); LYMPHOCYTES ABSOLUTE AUTO 1.22 K/mm3 (0.84-5.20); LYMPHOCYTES PERCENT AUTO 46 % (21-46); MONOCYTES ABSOLUTE AUTO 0.23 K/mm3 (0.16-1.47); MONOCYTES PERCENT AUTO 9 % (4-13); Mean Corpuscular HGB 30.8 pg (26.0-34.0); Mean Corpuscular HGB Conc 31.8 g/dL (31.5-36.5); Mean Corpuscular Volume 97 fL (80-100); Mean Platelet Volume 10.6 fL (9.1-12.4); NEUTROPHILS ABSOLUTE AUTO 1.11 K/mm3 (1.96-9.15); NEUTROPHILS PERCENT AUTO 41 % (41-73); Platelet Count 204 K/mm3 (150-400); RDW Coefficient Variation 13.9 % (11.7-14.2); RDW Standard Deviation 49.6 fL (35.1-46.3); Red Blood Cell Count 2.99 M/mm3 (3.80-5.20); White Blood Cell Count 2.68 K/mm3 (4.00-11.30)
[2024-09-11 21:44] LABS: C-REACTIVE PROTEIN, EXT RANGE <0.290 mg/dL (0.000-0.300)
[2024-09-11 21:46] LABS: Alanine Aminotransfer (ALT/SGP 13 U/L (12-78); Albumin/Globulin Ratio 0.8 (0.8-1.8); Alk Phos 82 U/L (50-136); Anion Gap 11 mmol/L (3-11); Aspartate Aminotrans (AST/SGOT 14 U/L (12-37); Bilirubin, Total 0.3 mg/dL (0.1-1.0); Blood Urea Nitrogen 28 mg/dL (8-24); Bun/Creatinine Ratio 20.9 (12.0-20.0); CO2, Blood 26 mmol/L (21-32); Calcium, Blood 9.3 mg/dL (8.5-10.1); Chloride, Blood 108 mmol/L (98-108); Creatinine, Blood 1.34 mg/dL (0.40-1.00); Globulin, Blood 3.6 g/dL (2.2-4.0); Glomerular Filtration Rate 43 (60-); Glucose, Blood 93 mg/dL (70-99); Sodium, Blood 141 mmol/L (136-145); Total Protein, Blood 6.6 g/dL (6.4-8.2)
== END ==
LOC: LAB SHORT 15:11 → LAB 15:11
PROVIDERS: Orthopaedic Surgery
DX: T84.53XA Infection and inflammatory reaction due to internal right knee prosthesis, initial encounter (principal)
CPT/HCPCS: 80053; 82550; 85025; 86140

== ENCOUNTER → 2024-09-18 | Outpatient (CLI) | payer MEDICARE ==
[2024-09-18 18:58] LABS: Hematocrit 31.5 % (33.0-51.0); Hemoglobin 9.8 g/dL (11.5-16.0); Mean Corpuscular HGB 30.3 pg (26.0-34.0); Mean Corpuscular HGB Conc 31.1 g/dL (31.5-36.5); Mean Corpuscular Volume 98 fL (80-100); Mean Platelet Volume 10.8 fL (9.1-12.4); Platelet Count 212 K/mm3 (150-400); RDW Coefficient Variation 13.5 % (11.7-14.2); RDW Standard Deviation 48.7 fL (35.1-46.3); Red Blood Cell Count 3.23 M/mm3 (3.80-5.20); White Blood Cell Count 4.22 K/mm3 (4.00-11.30)
[2024-09-18 19:04] LABS: C-REACTIVE PROTEIN, EXT RANGE <0.290 mg/dL (0.000-0.300)
[2024-09-18 19:20] LABS: Alanine Aminotransfer (ALT/SGP 18 U/L (12-78); Albumin, Blood 3.2 g/dL (3.4-5.0); Albumin/Globulin Ratio 0.9 (0.8-1.8); Alk Phos 83 U/L (50-136); Anion Gap 10 mmol/L (3-11); Aspartate Aminotrans (AST/SGOT 15 U/L (12-37); Bilirubin, Total 0.4 mg/dL (0.1-1.0); Blood Urea Nitrogen 27 mg/dL (8-24); Bun/Creatinine Ratio 23.5 (12.0-20.0); CO2, Blood 25 mmol/L (21-32); Calcium, Blood 9.3 mg/dL (8.5-10.1); Chloride, Blood 109 mmol/L (98-108); Creatinine, Blood 1.15 mg/dL (0.40-1.00); Globulin, Blood 3.7 g/dL (2.2-4.0); Glomerular Filtration Rate 51 (60-); Glucose, Blood 81 mg/dL (70-99); Potassium, Blood 3.8 mmol/L (3.5-5.5); Sodium, Blood 140 mmol/L (136-145); Total Protein, Blood 6.9 g/dL (6.4-8.2)
== END ==
LOC: LAB SHORT 17:15 → LAB 17:15
PROVIDERS: Orthopaedic Surgery
DX: T84.53XA Infection and inflammatory reaction due to internal right knee prosthesis, initial encounter (principal); Z79.2 Long term (current) use of antibiotics
CPT/HCPCS: 80053; 82550; 85027; 86140

== ENCOUNTER → 2024-09-25 | Outpatient (CLI) | payer MEDICARE ==
[2024-09-25 17:27] LABS: Hematocrit 31.8 % (33.0-51.0); Hemoglobin 9.9 g/dL (11.5-16.0); Mean Corpuscular HGB 30.2 pg (26.0-34.0); Mean Corpuscular HGB Conc 31.1 g/dL (31.5-36.5); Mean Corpuscular Volume 97 fL (80-100); Mean Platelet Volume 10.9 fL (9.1-12.4); Platelet Count 200 K/mm3 (150-400); RDW Coefficient Variation 13.4 % (11.7-14.2); RDW Standard Deviation 47.9 fL (35.1-46.3); Red Blood Cell Count 3.28 M/mm3 (3.80-5.20)
[2024-09-25 21:50] LABS: C-REACTIVE PROTEIN, EXT RANGE <0.290 mg/dL (0.000-0.300)
[2024-09-25 22:01] LABS: Alanine Aminotransfer (ALT/SGP 17 U/L (12-78); Albumin/Globulin Ratio 0.8 (0.8-1.8); Alk Phos 83 U/L (50-136); Anion Gap 10 mmol/L (3-11); Aspartate Aminotrans (AST/SGOT 11 U/L (12-37); Bilirubin, Total 0.3 mg/dL (0.1-1.0); Blood Urea Nitrogen 23 mg/dL (8-24); Bun/Creatinine Ratio 23.2 (12.0-20.0); CO2, Blood 27 mmol/L (21-32); Calcium, Blood 9.1 mg/dL (8.5-10.1); Chloride, Blood 107 mmol/L (98-108); Creatinine, Blood 0.99 mg/dL (0.40-1.00); Globulin, Blood 3.7 g/dL (2.2-4.0); Glomerular Filtration Rate 61 (60-); Glucose, Blood 88 mg/dL (70-99); Potassium, Blood 3.8 mmol/L (3.5-5.5); Sodium, Blood 140 mmol/L (136-145); Total Protein, Blood 6.7 g/dL (6.4-8.2)
== END ==
LOC: LAB 15:18 → LAB SHORT 15:18
PROVIDERS: Orthopaedic Surgery
DX: T84.53XA Infection and inflammatory reaction due to internal right knee prosthesis, initial encounter (principal)
CPT/HCPCS: 80053; 82550; 85027; 85651; 86140

== ENCOUNTER → 2024-09-27 | Outpatient (CLI) | payer MEDICARE | LOC: LAB SHORT 16:00 → LAB 16:00 | DX: Z47.1 Aftercare following joint replacement surgery (principal); Z96.651 Presence of right artificial knee joint | CPT/HCPCS: 87070; 87106; 87205 ==

== ENCOUNTER → 2024-10-02 | Outpatient (CLI) | payer MEDICARE ==
[2024-10-02 16:12] LABS: Hematocrit 30.2 % (33.0-51.0); Hemoglobin 9.7 g/dL (11.5-16.0); Mean Corpuscular HGB 30.3 pg (26.0-34.0); Mean Corpuscular HGB Conc 32.1 g/dL (31.5-36.5); Mean Corpuscular Volume 94 fL (80-100); Mean Platelet Volume 10.7 fL (9.1-12.4); Platelet Count 209 K/mm3 (150-400); RDW Coefficient Variation 13.5 % (11.7-14.2); RDW Standard Deviation 46.7 fL (35.1-46.3); White Blood Cell Count 4.17 K/mm3 (4.00-11.30)
[2024-10-02 18:48] LABS: C-REACTIVE PROTEIN, EXT RANGE <0.290 mg/dL (0.000-0.300)
[2024-10-02 18:56] LABS: Alanine Aminotransfer (ALT/SGP 19 U/L (12-78); Albumin/Globulin Ratio 0.8 (0.8-1.8); Alk Phos 82 U/L (50-136); Anion Gap 10 mmol/L (3-11); Aspartate Aminotrans (AST/SGOT 12 U/L (12-37); Bilirubin, Total 0.3 mg/dL (0.1-1.0); Blood Urea Nitrogen 29 mg/dL (8-24); Bun/Creatinine Ratio 26.9 (12.0-20.0); CO2, Blood 27 mmol/L (21-32); Calcium, Blood 9.1 mg/dL (8.5-10.1); Chloride, Blood 106 mmol/L (98-108); Creatinine, Blood 1.08 mg/dL (0.40-1.00); Globulin, Blood 3.7 g/dL (2.2-4.0); Glomerular Filtration Rate 55 (60-); Glucose, Blood 111 mg/dL (70-99); Potassium, Blood 3.4 mmol/L (3.5-5.5); Sodium, Blood 140 mmol/L (136-145); Total Protein, Blood 6.7 g/dL (6.4-8.2)
== END | disposition home or self-care (01) ==
LOC: LAB 12:45 → LAB SHORT 12:45
PROVIDERS: Family Medicine
DX: T84.53XA Infection and inflammatory reaction due to internal right knee prosthesis, initial encounter (principal); Z79.2 Long term (current) use of antibiotics
CPT/HCPCS: 80053; 82550; 85027; 85651; 86140

== ENCOUNTER → 2024-10-09 | Outpatient (CLI) | payer MEDICARE ==
[~2024-10-09] MED LIST changes: +DAPTOMYCIN500 M3 IV; +Diflucan100 MG PO
[2024-10-09 16:19] LABS: BASOPHILS ABSOLUTE AUTO 0.02 K/mm3 (0.00-0.23); BASOPHILS PERCENT AUTO 1 % (0-2); EOSINOPHILS ABSOLUTE AUTO 0.07 K/mm3 (0.00-0.68); EOSINOPHILS PERCENT AUTO 2 % (0-6); Hematocrit 30.7 % (33.0-51.0); Hemoglobin 9.7 g/dL (11.5-16.0); IMMATURE GRAN PERCENT AUTO 0 % (0-1); LYMPHOCYTES ABSOLUTE AUTO 1.39 K/mm3 (0.84-5.20); LYMPHOCYTES PERCENT AUTO 35 % (21-46); MONOCYTES ABSOLUTE AUTO 0.32 K/mm3 (0.16-1.47); MONOCYTES PERCENT AUTO 8 % (4-13); Mean Corpuscular HGB 29.6 pg (26.0-34.0); Mean Corpuscular HGB Conc 31.6 g/dL (31.5-36.5); Mean Corpuscular Volume 94 fL (80-100); Mean Platelet Volume 10.7 fL (9.1-12.4); NEUTROPHILS ABSOLUTE AUTO 2.13 K/mm3 (1.96-9.15); NEUTROPHILS PERCENT AUTO 54 % (41-73); Platelet Count 235 K/mm3 (150-400); RDW Coefficient Variation 13.7 % (11.7-14.2); RDW Standard Deviation 46.5 fL (35.1-46.3); Red Blood Cell Count 3.28 M/mm3 (3.80-5.20); White Blood Cell Count 3.93 K/mm3 (4.00-11.30)
[2024-10-09 16:35] LABS: C-REACTIVE PROTEIN, EXT RANGE 0.529 mg/dL (0.000-0.300)
[2024-10-09 16:51] LABS: Albumin, Blood 3.1 g/dL (3.4-5.0); Albumin/Globulin Ratio 0.9 (0.8-1.8); Bilirubin, Total 0.2 mg/dL (0.1-1.0); Bun/Creatinine Ratio 13.8 (12.0-20.0); Calcium, Blood 9.3 mg/dL (8.5-10.1); Creatinine, Blood 1.16 mg/dL (0.40-1.00); Globulin, Blood 3.6 g/dL (2.2-4.0); Potassium, Blood 3.8 mmol/L (3.5-5.5); Total Protein, Blood 6.7 g/dL (6.4-8.2)
== END ==
LOC: LAB SHORT 12:20 → LAB 12:20
PROVIDERS: Orthopaedic Surgery
DX: T84.53XA Infection and inflammatory reaction due to internal right knee prosthesis, initial encounter (principal); Z79.2 Long term (current) use of antibiotics
CPT/HCPCS: 80053; 82550; 85025; 85651; 86140

== ENCOUNTER 2024-10-12 15:16 | Day surgery (SDC) | payer MEDICARE ==
[2024-10-12] VITALS (11 sets, daily range): BP systolic 137–152; BP diastolic 73–90
[~2024-10-12] VITALS: Ht 167.6 cm; Wt 58.5 kg
[~2024-10-12 15:16] MED LIST changes: +CeFAZolin Sodium 2,000 MG in NS 100 ML IV SCH; -Diflucan100 MG PO; +Lactated Ringer's 1,000 ML IV SCH
--- NOTE | 2024-10-12 15:46 | NUR ---
PT HAS PICC TO HER RIGHT UPPER ARM THAT FLUSHES WELL AND FLOWS TO GRAVITY.
[2024-10-12] MEDS ORDERED: Diflucan100 MG PO (15:52)
[2024-10-12] MEDS ORDERED: Bupivacaine 0.5% HCl 5 MG/ML 30MLVIAL ONE ×2 (15:53→16:57)
--- NOTE | 2024-10-12 16:03 | NUR ---
Ambulatory in Day Surgery. History, Chart, Medications and Allergies reviewed before start of procedure. Lungs clear T/O to Auscultation. Patient confirms NPO status and agrees with scheduled surgery. Pre-Op teaching done. Pt verbalizes understanding. Patient States Post-Procedure ride home has been arranged. PT BELONGINGS LEFT IN DAY SURGERY BAY 9 FOR SAFEKEEPING.
[2024-10-12] MEDS ORDERED: propofoL 20 ML IV ONE (16:07)
[2024-10-12] MEDS ORDERED: FentaNYL Citrate 50 MCG/ML 2 ML Injection ONE ×2 (16:08→18:04)
[2024-10-12] MEDS ORDERED: Phenylephrine HCl 100 MCG/ML-NS 10MLSYR (1MG/10ML) ONE (16:13)
[2024-10-12] MEDS ORDERED: Dexamethasone Sod Phos 10 MG/ML 1ML VIAL ONE (16:13)
[2024-10-12] MEDS ORDERED: Ondansetron HCl 2 MG / ML 2ML Vial ONE (16:13)
[2024-10-12 16:23] LABS: International Normalized Ratio 2.9; Prothrombin Time Results 28.7 Sec (9.7-11.5)
[2024-10-12] MEDS ORDERED: HYDROmorphone HCl/Pf 1MG SYR ONE (16:52)
[2024-10-12] MEDS ORDERED: EpiNEPhrine 1 MG/1 ML 1ML Vial ONE (16:56)
[2024-10-12] MEDS ORDERED: OxyCODONE HCL 5 MG TAB PO PRN (17:40)
--- NOTE | 2024-10-12 20:02 | NUR ---
PATIENT UNDERSTOOD DISCHARGE INSTRUCTIONS. PATIENT AMBULATED WITH ASSISTANCE. OFFERED FOOD AND JUICE, TOW. RIDE HOME ESTABLISHED. BELONGINGS WITH PATIENT. PATIENT REFUSED TO PLACE DENTURES FOR RIDE HOME. DENTURES CLEAN AND STORED IN CONTAINER, SENT HOME WITH PATIENT IN BELONGINGS BAG. WOUND VAC WITH PATIENT IN BELONGINGS BAG. WHEEL CHAIR RIDE TO CAR, DAUGHTER TO GIVE RIDE HOME.
== END 2024-10-12 23:00 | disposition home or self-care (01) ==
LOC: ORSCMMR 15:16 → ORD 15:16 → ORSCMMR 15:17 → ORD 23:00 → ORSCMMR 23:00
PROVIDERS: Nurse Anesthetist, Certified Registered; Orthopaedic Surgery
PROC: 0JBN0ZZ Excision of Right Lower Leg Subcutaneous Tissue and Fascia, Open Approach (ICD-10-PCS; principal; 2024-10-12 16:30)
DX: L76.34 Postprocedural seroma of skin and subcutaneous tissue following other procedure (principal); Z96.651 Presence of right artificial knee joint; I12.9 Hypertensive chronic kidney disease with stage 1 through stage 4 chronic kidney disease, or unspecified chronic kidney disease; N18.9 Chronic kidney disease, unspecified; Z86.718 Personal history of other venous thrombosis and embolism; Z79.01 Long term (current) use of anticoagulants; F41.9 Anxiety disorder, unspecified; F32.A Depression, unspecified; Z79.899 Other long term (current) drug therapy; E78.00 Pure hypercholesterolemia, unspecified
CPT/HCPCS: 85610; A9270; J0171; J0690; J1100; J1171; J2371; J2405; J2704; J3010; J7120

== ENCOUNTER → 2024-10-16 | Outpatient (CLI) | payer MEDICARE ==
[~2024-10-16] MED LIST changes: -CeFAZolin Sodium 2,000 MG in NS 100 ML IV SCH; +Diflucan100 MG PO; -Lactated Ringer's 1,000 ML IV SCH
[2024-10-16 17:25] LABS: BASOPHILS ABSOLUTE AUTO 0.02 K/mm3 (0.00-0.23); BASOPHILS PERCENT AUTO 1 % (0-2); EOSINOPHILS ABSOLUTE AUTO 0.05 K/mm3 (0.00-0.68); EOSINOPHILS PERCENT AUTO 1 % (0-6); Hematocrit 31.2 % (33.0-51.0); Hemoglobin 9.8 g/dL (11.5-16.0); IMMATURE GRAN ABSOLUTE AUTO 0.01 K/mm3 (0.00-0.10); IMMATURE GRAN PERCENT AUTO 0 % (0-1); LYMPHOCYTES ABSOLUTE AUTO 1.39 K/mm3 (0.84-5.20); LYMPHOCYTES PERCENT AUTO 34 % (21-46); MONOCYTES ABSOLUTE AUTO 0.28 K/mm3 (0.16-1.47); MONOCYTES PERCENT AUTO 7 % (4-13); Mean Corpuscular HGB 29.4 pg (26.0-34.0); Mean Corpuscular HGB Conc 31.4 g/dL (31.5-36.5); Mean Corpuscular Volume 94 fL (80-100); Mean Platelet Volume 10.8 fL (9.1-12.4); NEUTROPHILS ABSOLUTE AUTO 2.34 K/mm3 (1.96-9.15); NEUTROPHILS PERCENT AUTO 57 % (41-73); Platelet Count 230 K/mm3 (150-400); RDW Coefficient Variation 13.7 % (11.7-14.2); RDW Standard Deviation 46.1 fL (35.1-46.3); Red Blood Cell Count 3.33 M/mm3 (3.80-5.20); White Blood Cell Count 4.09 K/mm3 (4.00-11.30)
[2024-10-16 19:28] LABS: C-REACTIVE PROTEIN, EXT RANGE <0.290 mg/dL (0.000-0.300)
[2024-10-16 19:38] LABS: Alanine Aminotransfer (ALT/SGP 52 U/L (12-78); Albumin, Blood 3.2 g/dL (3.4-5.0); Albumin/Globulin Ratio 0.9 (0.8-1.8); Alk Phos 184 U/L (50-136); Anion Gap 9 mmol/L (3-11); Aspartate Aminotrans (AST/SGOT 23 U/L (12-37); Bilirubin, Total 0.3 mg/dL (0.1-1.0); Blood Urea Nitrogen 24 mg/dL (8-24); Bun/Creatinine Ratio 18.2 (12.0-20.0); CO2, Blood 29 mmol/L (21-32); Calcium, Blood 9.3 mg/dL (8.5-10.1); Chloride, Blood 106 mmol/L (98-108); Creatinine, Blood 1.32 mg/dL (0.40-1.00); Globulin, Blood 3.6 g/dL (2.2-4.0); Glomerular Filtration Rate 43 (60-); Glucose, Blood 118 mg/dL (70-99); Potassium, Blood 3.6 mmol/L (3.5-5.5); Sodium, Blood 140 mmol/L (136-145); Total Protein, Blood 6.8 g/dL (6.4-8.2)
== END ==
LOC: LAB 11:00 → LAB SHORT 11:00
PROVIDERS: Orthopaedic Surgery
DX: T82.49XA Other complication of vascular dialysis catheter, initial encounter (principal); Z79.2 Long term (current) use of antibiotics
CPT/HCPCS: 80053; 82550; 85025; 85651; 86140

== ENCOUNTER 2024-10-19 04:00 | Day surgery (SDC) | payer MEDICARE ==
[2024-10-19] MEDS ORDERED: Alteplase Recombinant 2 MG / Vial IV PRN (06:55)
[2024-10-19 09:38] VITALS: BP 147/86
--- NOTE | 2024-10-19 11:49 | NUR ---
PT CAME INTO CLINIC TODAY FOR AN APPT TO HAVE CATH MIKE PLACED IN HER PICC LINE. UPON ARRIVAL TO ROOM 4, BOTH LUMENS FLUSHED AND BLOOD RETURN ACHIEVED. NO EVIDENCE SUGGESTED THAT CATH MIKE WAS NEEDED. PT EDUCATED ON FLUSHING LINE AND PROBLEM SOLVE ANY FLUSHING DIFFICULTIES. PT TO RETURN TO CLINIC IF THE LINE DOES NOT FLUSH IN THE FUTURE.
== END 2024-10-19 09:53 | disposition home or self-care (01) ==
LOC: ATC 04:00
DX: T84.53XA Infection and inflammatory reaction due to internal right knee prosthesis, initial encounter (principal); I10 Essential (primary) hypertension; E78.00 Pure hypercholesterolemia, unspecified; M06.9 Rheumatoid arthritis, unspecified; Z86.711 Personal history of pulmonary embolism; Z87.891 Personal history of nicotine dependence; Z79.01 Long term (current) use of anticoagulants; Z79.899 Other long term (current) drug therapy; Z88.0 Allergy status to penicillin; Z88.1 Allergy status to other antibiotic agents; Z88.2 Allergy status to sulfonamides; Z88.8 Allergy status to other drugs, medicaments and biological substances; Y79.2 Prosthetic and other implants, materials and accessory orthopedic devices associated with adverse incidents
CPT/HCPCS: 99213

== ENCOUNTER → 2024-10-23 | Outpatient (CLI) | payer MEDICARE ==
[2024-10-23 17:35] LABS: BASOPHILS ABSOLUTE AUTO 0.02 K/mm3 (0.00-0.23); BASOPHILS PERCENT AUTO 1 % (0-2); EOSINOPHILS ABSOLUTE AUTO 0.09 K/mm3 (0.00-0.68); EOSINOPHILS PERCENT AUTO 3 % (0-6); Hematocrit 29.8 % (33.0-51.0); Hemoglobin 9.5 g/dL (11.5-16.0); IMMATURE GRAN ABSOLUTE AUTO 0.01 K/mm3 (0.00-0.10); IMMATURE GRAN PERCENT AUTO 0 % (0-1); LYMPHOCYTES ABSOLUTE AUTO 1.45 K/mm3 (0.84-5.20); LYMPHOCYTES PERCENT AUTO 40 % (21-46); MONOCYTES PERCENT AUTO 8 % (4-13); Mean Corpuscular HGB 29.5 pg (26.0-34.0); Mean Corpuscular HGB Conc 31.9 g/dL (31.5-36.5); Mean Corpuscular Volume 93 fL (80-100); Mean Platelet Volume 10.7 fL (9.1-12.4); NEUTROPHILS PERCENT AUTO 49 % (41-73); Platelet Count 211 K/mm3 (150-400); RDW Coefficient Variation 14.3 % (11.7-14.2); RDW Standard Deviation 48.1 fL (35.1-46.3); Red Blood Cell Count 3.22 M/mm3 (3.80-5.20); White Blood Cell Count 3.67 K/mm3 (4.00-11.30)
[2024-10-23 18:12] LABS: C-REACTIVE PROTEIN, EXT RANGE 0.816 mg/dL (0.000-0.300)
[2024-10-23 18:15] LABS: Albumin, Blood 3.1 g/dL (3.4-5.0); Albumin/Globulin Ratio 0.9 (0.8-1.8); Bilirubin, Total 0.3 mg/dL (0.1-1.0); Bun/Creatinine Ratio 22.8 (12.0-20.0); Calcium, Blood 8.8 mg/dL (8.5-10.1); Creatinine, Blood 1.23 mg/dL (0.40-1.00); Globulin, Blood 3.6 g/dL (2.2-4.0); Potassium, Blood 4.1 mmol/L (3.5-5.5); Total Protein, Blood 6.7 g/dL (6.4-8.2)
== END | disposition home or self-care (01) ==
LOC: LAB 12:30 → LAB SHORT 12:30
PROVIDERS: Orthopaedic Surgery
DX: T84.53XA Infection and inflammatory reaction due to internal right knee prosthesis, initial encounter (principal); Z79.2 Long term (current) use of antibiotics
CPT/HCPCS: 80053; 82550; 85025; 85651; 86140